=== PATIENT | female | born 2000 | race Caucasian/White ===

== ENCOUNTER 2020-09-25 10:48 | Emergency (ER) | payer BC ==
[2020-09-25] MEDS ORDERED: Dexamethasone 10 MG/ML VIAL ONE (12:13)
[2020-09-25] MEDS ORDERED: Ketorolac Tromethamine 30 MG/ML VIAL ONE (12:13)
[2020-09-25] MEDS ORDERED: Lorazepam 2 MG/ML VIAL ONE (12:13)
[2020-09-25] MEDS ORDERED: Fentanyl 100 MCG/2 ML VIAL ONE (12:35)
== END 2020-09-25 13:00 | disposition home or self-care (01) ==
LOC: ERS 10:48
DX: M54.5 Low back pain (principal)
CPT/HCPCS: 72100; 96374; 96375; J1100; J1885; J2060; J3010

== ENCOUNTER 2021-01-17 08:53 | Outpatient (CLI) | payer BC | END 2021-01-17 08:54 | disposition home or self-care (01) | LOC: BICMRI 08:53 | PROVIDERS: ATTEND Specialist | DX: M51.16 Intervertebral disc disorders with radiculopathy, lumbar region (principal); M54.14 Radiculopathy, thoracic region | CPT/HCPCS: 72146; 72148 ==

== ENCOUNTER 2022-01-21 07:31 | Outpatient (CLI) | payer BC | END 2022-01-21 07:32 | disposition home or self-care (01) | LOC: SCSMRI 07:31 | PROVIDERS: ATTEND Nurse Practitioner Family | DX: M51.16 Intervertebral disc disorders with radiculopathy, lumbar region (principal); M51.37 Other intervertebral disc degeneration, lumbosacral region | CPT/HCPCS: 72148 ==